=== PATIENT | female | born 1965 | race Caucasian/White ===

== ENCOUNTER 2018-02-17 22:24 | Emergency (ER) | payer OTHER ==
--- NOTE | 2018-02-17 23:15 | ERPHSYRPT ---
- History of Present Illness Time Seen by Provider: 02/17/18 23:00 Source: patient Exam Limitations: clinical condition Patient Subjective Stated Complaint: pt states she has had a cough for 1-2 days ; also states she fell down a set of steps at her house last friday; slipped on a step and fell down approx 13 steps; pt denies any loss of consciousness; c/ o pain, edema, and ecchymosis to left cheek and eye, right shoulder, left wrist , and left great toe. Triage Nursing Assessment: pt a&o x3; skin p, w, & d; obvious bruising noted to left cheek on her face, her left wrist, right shoulder, and left foot; states her cough is non-productive and started 2 days ago; pt seen her family dr for injuries sustained in the fall last week but states the hospital would not do any radiological tests so she wants to have them done tonight. Physician History: PATIENT WITH A HISTORY OF COPD STATES SHE FELL DOWN STAIRS 5 DAYS AGO SUSTAINED INJURY TO HER FACE, NECK, SHOULDER AND HAND. DENIES LOSS OF CONSCIOUSNESS, COMPLAINS OF PAIN WITH BRUISING OVER HER RIGHT SHOULDER, LEFT HAND, AND ACROSS HER MILD FACE. DENIES HEADACHE, NUMBNESS, TINGLING OR WEAKNESS IN EXTREMITIES. PATIENT ALSO COMPLAINS PRODUCTIVE COUGH AND DIFFICULTY BREATHING. DENIES CHEST PAIN FEVER OR CHILLS. Occurred: last week Reason for Fall: tripped Injuries/Pain Location: head, face, neck, upper extremity Loss of Consciousness: no loss of consciousness Quality: throbbing Severity of Pain-Max: moderate Severity of Pain-Current: moderate Modifying Factors: Improves With: movement Associated Symptoms (Fall): other (PAIN IN SHOULDER AND HAND) Allergies/Adverse Reactions: No Known Drug Allergies Allergy (Verified 02/17/18 22:59) Home Medications: Naproxen 500 mg [Naprosyn 500 MG] 500 mg PO QID 02/17/18 [History] Hx Tetanus, Diphtheria Vaccination/Date Given: Yes Hx Influenza Vaccination/Date Given: No Hx Pneumococcal Vaccination/Date Given: Yes Immunizations Up to Date: No - Review of Systems Constitutional: No Fever, No Chills Eyes: No Symptoms Ears, Nose, & Throat: No Symptoms, Other (BRUISING OVER FACE AND NOSE) Respiratory: No Cough, No Dyspnea Cardiac: No Symptoms, No Chest Pain, No Edema, No Syncope Abdominal/Gastrointestinal: No Symptoms, No Abdominal Pain, No Nausea, No Vomiting, No Diarrhea Genitourinary Symptoms: No Symptoms, No Dysuria Musculoskeletal: Injury, Joint Pain, Joint Swelling, No Back Pain, No Neck Pain Skin: No Rash Neurological: No Dizziness, No Focal Weakness, No Sensory Changes Psychological: No Symptoms Endocrine: No Symptoms All Other Systems: Reviewed and Negative - Past Medical History Pertinent Past Medical History: Yes Musculoskeletal History: Fractures Psycho-Social History: No Pertinent History Other Medical History: myotonic dystrophy - Past Surgical History Past Surgical History: Yes Female Surgical History: Hysterectomy - Social History Smoking Status: Current every day smoker How long have you smoked: 30 Exposure to second hand smoke: Yes Drug Use: none Patient Lives Alone: No - Female History Hx Last Menstrual Period: hysterectomy - Nursing Vital Signs Nursing Vital Signs: Initial Vital Signs Temperature 98.1 F 02/17/18 22:44 Pulse Rate 100 H 02/17/18 22:44 Respiratory Rate 22 02/17/18 22:44 Blood Pressure 125/94 02/17/18 22:44 O2 Sat by Pulse Oximetry 92 L 02/17/18 22:44 Pain Scale Pain Intensity 10 - [place] Coma Score Best Eye Response ([place]): (4) open spontaneously Best Verbal Response ([place]): (5) oriented Best Motor Response ([place]): (6) obeys commands [place] Total: 15 - Physical Exam General Appearance: no apparent distress, alert Head Injury: no evidence of injury, ecchymosis, tenderness (BILATERAL INFRA- ORBITAL SWELLING YELLOW ECCHYMOSIS, TENDERNESS NASAL BRIDGE TENDERNESS) Eye Exam: PERRL/EOMI ENT Exam: airway nml Neck Exam: normal inspection, No tenderness Respiratory/Chest Exam: wheezing (DIFFUSE WHEEZES), No chest tenderness, No respiratory distress Cardiovascular Exam: normal heart sounds, regular rate/rhythm Gastrointestinal Exam: soft, No tenderness, No distention, No guarding, No ecchymosis Back Exam: normal inspection, No vertebral tenderness Extremity Exam: normal inspection, normal range of motion, pelvis stable, No deformities Peripheral Pulses: carotid (R): 2+, carotid (L): 2+, femoral (R): 2+, femoral (L ): 2+, dorsalis-pedis (R): 2+, dorsalis-pedis (L): 2+ Neurologic Exam: alert, oriented x 3, cooperative, sensation nml, No motor deficits Skin Exam: normal color, warm, dry SpO2 Interpretation: normal SpO2: 92 Oxygen Delivery: Room Air - Radiology Exams Chest X-ray Interpretation: Interpreted by me (MARKED DEXTROSCIOLOSIS, NO INFILTRATES ) Right Shoulder X-ray Interpretation: Interpreted by me (RIGHT LATERAL DISPLACED CLAVICLE FRACUTURE) Left Hand X-ray Interpretation: Interpreted by me (DISPLACED LEFT DISTAL 2ND METACARPAL) Ordered Tests: Active Orders 24 hr Category Date Time Status IV Insertion STAT Care 02/18/18 00:52 Active Sling Application STAT Care 02/18/18 01:31 Active Splint STAT Care 02/18/18 01:31 Active CERVICAL SPINE WO CONTRAST [CT] Stat Exams 02/17/18 23:10 Taken CHEST 1 VIEW (PORTABLE) Stat Exams 02/18/18 23:12 Taken FACIAL BONES WO CONTRAST [CT] Stat Exams 02/17/18 23:10 Taken HAND (MINIMUM 3 VIEWS) Stat Exams 02/18/18 23:12 Taken HEAD WITHOUT CONTRAST [CT] Stat Exams 02/17/18 23:11 Taken SHOULDER Stat Exams 02/18/18 23:12 Taken BLOOD CULTURE Stat Lab 02/17/18 23:30 Received CBC W DIFF Stat Lab 02/17/18 23:45 Completed Respiratory Nebulizer STAT RT 02/17/18 23:14 Completed Medication Summary Discontinued Medications Generic Name Dose Route Start Last Admin Trade Name Freq PRN Reason Stop Dose Admin Albuterol/Ipratropium 3 ml 02/17/18 23:14 02/17/18 23:43 Duoneb 0.5-3 Mg/3 Ml Neb IH 02/17/18 23:15 3 ml STAT ONE Administration Albuterol/Ipratropium Confirm 02/17/18 23:26 Duoneb 0.5-3 Mg/3 Ml Neb Administered 02/17/18 23:27 Dose 3 ml IH .STK-MED ONE Sodium Chloride 1,000 mls @ 500 mls/hr 02/17/18 23:20 02/18/18 00:45 Sodium Chloride 0.9% 1000 Ml IV 02/18/18 01:19 500 mls/hr .Q2H STA Administration Ceftriaxone Sodium/Dextrose 1 g in 50 mls @ 100 mls/hr 02/17/18 23:30 00:45 Rocephin 1 Gm-D5w 50 Ml Bag IV 02/17/18 23:59 100 mls/hr STAT STA Administration Sodium Chloride Confirm 02/18/18 00:12 Sodium Chloride 0.9% 1000 Ml Administered 02/18/18 00:13 Dose 1,000 mls @ ud .ROUTE .STK-MED ONE Ceftriaxone Sodium/Dextrose Confirm 02/18/18 00:12 Rocephin 1 Gm-D5w 50 Ml Bag Administered 02/18/18 00:13 Dose 1 g in 50 mls @ ud IV .STK-MED ONE Methylprednisolone Sodium Succinate 125 mg 02/17/18 23:30 02/18/18 00:45 Solu-Medrol 125 Mg IV 02/17/18 23:31 125 mg STAT ONE Administration Methylprednisolone Sodium Succinate Confirm 02/18/18 00:12 Solu-Medrol 125 Mg Administered 02/18/18 00:13 Dose 125 mg .ROUTE .STK-MED ONE Ondansetron HCl 4 mg 02/18/18 00:49 02/18/18 00:53 Zofran 4 Mg/2 Ml Vial IV 02/18/18 00:50 4 mg STAT ONE Administration Ondansetron HCl Confirm 02/18/18 00:49 Zofran 4 Mg/2 Ml Vial Administered 02/18/18 00:50 Dose 4 mg .ROUTE .STK-MED ONE Lab/Rad Data: Laboratory Result Diagrams 02/17/18 23:45 Laboratory Results 02/17/18 02/17/18 Range/Units 23:45 23:45 WBC 5.6 (4.0-10.5) K/mm3 RBC 4.66 (4.1-5.4) M/mm3 Hgb 14.6 (12.0-16.0) gm/dl Hct 44.7 (35-47) % MCV 95.9 (78-100) fl MCH 31.3 (26-32) pg MCHC 32.7 (32-36) g/dl RDW 14.2 H (11.5-14.0) % Plt Count 322 (150-450) K/mm3 MPV 9.1 (6-9.5) fl Gran % 51.5 (36.0-66.0) % Eos # (Auto) 0.04 (0-0.5) Absolute Lymphs (auto) 2.01 (1.0-4.6) Absolute Monos (auto) 0.62 (0.0-1.3) Lymphocytes % 36.2 (24.0-44.0) % Monocytes % 11.2 (0.0-12.0) % Eosinophils % 0.7 (0.00-5.0) % Basophils % 0.4 (0.0-0.4) % Absolute Granulocytes 2.87 (1.4-6.9) Basophils # 0.02 (0-0.4) Influenza Type A Ag NEGATIVE (NEGATIVE) Influenza Type B Ag NEGATIVE (NEGATIVE) RSV (PCR) NEGATIVE (Negative) - Progress Progress: improved Progress Note: 02/18/18 01:42 APPLICATION DUONEB AEROSOL TX, IV SOLUMEDROL 125MG, ROCEPHIN 1 GM IVPB, APPLICATION LEFT SHORT FOREARM ORTHOGLASS SPLINT, AND RIGHT ARM SLING 02/18/18 01:45 Counseled pt/family regarding: lab results, diagnosis, need for follow-up, rad results - Departure Time of Disposition: 02:00 Departure Disposition: Home Clinical Impression: EXACERBATION COPD, RIGHT CLAVICLE FRACTURE, FRACTURE LEFT 2ND METACARPAL Condition: Stable Critical Care Time: No Referrals: JORDIN QUINTERO MD [Primary Care Provider] - Additional Instructions: CONTINUE AEROSOL TREATMENT EVERY 4 HOURS NEEDED. ANTIBIOTIC AUGMENTIN 875MG TWICE DAILY FOR 10 DAYS. WEAR ARM SLING AND LEFT FOREARM SPLINT FOR COMFORT. CONSULT YOUR FAMILY PHYSICIAN FOR REFERRAL TO ORTHOPEDIC SURGEON OR CONSULT DR GOFF ORTHOPEDIC SURGEON AT TO SCHEDULE AN APPOINTMENT. NORCO 5/325 EVERY 6 HOURS FOR PAIN. Prescriptions: Tramadol HCl 50 mg [Ultram 50 mg] 50 mg PO Q6H PRN PRN #15 tablet PRN Reason: Pain Amox Tr/Potass Clav. 875 mg [Augmentin 875-125 Tablet] 875 mg PO BID #20 tablet
[2018-02-17] MEDS ORDERED: DUONEB 0.5-3 MG/3 ml Neb IH ONE (23:26)
[2018-02-17] MEDS: DUONEB 0.5-3 MG/3 ml Neb IH ONE (23:43)
[2018-02-17 23:57] LABS: BASOPHIL % 0.4 % (0.0-0.4); Basophil (Absolute #) 0.02 (0-0.4); Eosinophil % 0.7 % (0.00-5.0); Eosinophil (Absolute #) 0.04 (0-0.5); Granulocyte Absolute (ANC) 2.87 (1.4-6.9); Granulocytes % 51.5 % (36.0-66.0); Hematocrit 44.7 % (35-47); Hemoglobin 14.6 gm/dl (12.0-16.0); Lymphocyte (Absolute #) 2.01 (1.0-4.6); Lymphocytes % 36.2 % (24.0-44.0); Mean Cell Volume 95.9 fl (78-100); Mean Corpuscular Hemoglobin 31.3 pg (26-32); Mean Corpuscular Hgb Concent. 32.7 g/dl (32-36); Mean Platelet Volume 9.1 fl (6-9.5); Monocyte (Absolute #) 0.62 (0.0-1.3); Monocytes % 11.2 % (0.0-12.0); Platelet Count 322 K/mm3 (150-450); Red Blood Count 4.66 M/mm3 (4.1-5.4); Red Cell Distribution Width 14.2 % (11.5-14.0); White Blood Count 5.6 K/mm3 (4.0-10.5)
[2018-02-18] MEDS ORDERED: ROCEPHIN 1 Gm-D5w 50 ml Bag** 1 G/50 ML IVPB IV ONE (00:12)
[2018-02-18] MEDS ORDERED: Sodium Chloride 0.9% 1000 ML 1,000 ML ONE (00:12)
[2018-02-18] MEDS ORDERED: solu-MEDROL 125 MG ONE (00:12)
[2018-02-18 00:34] LABS: INFLUENZA A NEGATIVE (NEGATIVE); INFLUENZA B NEGATIVE (NEGATIVE); RESPIRATORY SYNCTIAL VIRUS NEGATIVE (Negative)
[2018-02-18] MEDS: ROCEPHIN 1 Gm-D5w 50 ml Bag** 1 G/50 ML IVPB IV STA (00:45)
[2018-02-18] MEDS: solu-MEDROL 125 MG IV ONE (00:45)
[2018-02-18] MEDS: Sodium Chloride 0.9% 1000 ML 1,000 ML IV STA (00:45)
[2018-02-18] MEDS ORDERED: Zofran 4 MG/2 ML VIAL ONE (00:49)
[2018-02-18] MEDS: Zofran 4 MG/2 ML VIAL IV ONE (00:53)
[2018-02-18 01:31] VITALS: O2SAT 92
[2018-02-18 02:35] VITALS: BP 126/68; PULSE 80
--- NOTE | 2018-02-18 09:16 | XRAY ---
Indication: Pain following fall. Multiple contiguous axial images obtained through the head without contrast. Comparison: None Age-appropriate global atrophy and minimal periventricular degenerative micro-ischemia. No acute intracranial hemorrhage, abnormal extra-axial fluid collection, or mass effect. Fourth ventricle is midline without hydrocephalus. Bony calvarium intact. There is left maxillary sinus mucosal thickening with moderate fluid leveling. Remaining visualized paranasal sinuses and mastoid air cells clear. Impression: No acute intracranial abnormalities. Left maxillary sinus disease. Comment: Preliminary interpretation was made by [facility]. No discrepancy. CTDI 50.00
--- NOTE | 2018-02-18 09:22 | XRAY ---
Indication: Pain following fall. Multiple contiguous axial images obtained through the cervical spine. Sagittal and coronal reformatted images obtained. Comparison: None There is mildly displaced corner fracture involving the anterior inferior C4 segment. Mild right C3-C4 degenerative facet hypertrophy and minimal C5-C6 endplate spurring. Sagittal and coronal reformatted images demonstrates mild cervical lordotic reversal, positional versus paraspinal muscular spasm. C5-C6 disc space narrowing. No acute compression fracture, subluxation, or jumped facet. Normal-appearing craniocervical junction. Visualized soft tissues demonstrates 1.5 cm left thyroid nodule/cyst. CT head and CT facial bones reported separately. Impression: 1. Corner fracture involving the C4 segment. 2. Cervical lordotic reversal, positional versus paraspinal spasm. 3. Mild degenerative changes. 4. Incidental left thyroid nodule/cyst. Thyroid sonogram may yield further information if clinically warranted. Comment: Preliminary interpretation was made by [facility]. C4 fracture and thyroid finding not reported. I gave telephone report to Dr. Garcia at 0920 hrs. on February 18, 2018. CTDI 35.67
--- NOTE | 2018-02-18 09:30 | XRAY ---
Indication: Pain following fall. Multiple contiguous axial images obtained through the facial bones. Sagittal and coronal reformatted images obtained. Comparison: None Patient is edentulous. There is minimally depressed fracture involving the anterior wall of the left maxillary sinus with moderate sinus fluid leveling. Additional nondisplaced hairline right nasal bone fracture. Orbits including roof, ware, and floors intact. No radiopaque foreign body. Left maxillary sinus demonstrates mild mucosal thickening. Remaining paranasal sinuses are clear. Nasal passages clear with minimal nasal septal deviation. Visualized soft tissues unremarkable. CT head and CT cervical spine reported separately. Impression: 1. Left maxillary sinus anterior wall acute fracture with fluid leveling. Right nasal bone acute fracture. 2. Left maxillary sinus disease. Comment: Preliminary interpretation was made by [facility]. Maxillary sinus wall fracture not reported. I gave telephone report to Dr. Garcia at 0920 hrs. on February 18, 2018. CTDI 59.47
--- NOTE | 2018-02-18 09:35 | XRAY ---
Indication: Pain following fall. Comparison: None 3 views of the right shoulder demonstrates nondisplaced distal clavicle tip acute fracture, tiny humeral head bone island, and double curvature scoliosis. No other bony, articular, or soft tissue abnormalities.
--- NOTE | 2018-02-18 09:35 | XRAY ---
Indication: Cough. Status post fall. Comparison: February 17, 2013. Portable chest demonstrates normal heart and lungs. New nondisplaced distal right clavicle tip acute fracture. Stable double curvature scoliosis.
--- NOTE | 2018-02-18 09:36 | XRAY ---
Indication: Pain following fall. Comparison: None 3 views of the left hand demonstrates nondisplaced 2nd metacarpal head fracture. No other bony, articular, or soft tissue abnormalities.
== END 2018-02-18 01:42 | disposition home or self-care (01) ==
LOC: ED 22:24
PROC: 2W3DX1Z Immobilization of Left Lower Arm using Splint (ICD-10-PCS; principal; 2018-02-18)
DX: J44.1 Chronic obstructive pulmonary disease with (acute) exacerbation (principal); S42.001A Fracture of unspecified part of right clavicle, initial encounter for closed fracture; S02.2XXA Fracture of nasal bones, initial encounter for closed fracture; S62.391A Other fracture of second metacarpal bone, left hand, initial encounter for closed fracture; R51 Headache; M54.2 Cervicalgia; M25.511 Pain in right shoulder; W10.9XXA Fall (on) (from) unspecified stairs and steps, initial encounter; Y92.009 Unspecified place in unspecified non-institutional (private) residence as the place of occurrence of the external cause
CPT/HCPCS: 29126; 36000; 36415; 70450; 70486; 71045; 72125; 73030; 73130; 85025; 87040; 87631; 94640; 96374; 96375; 99284; J0696; J2405; J2930; A9270-GY